=== PATIENT | female | born 1960 | race African-American/Black ===

== ENCOUNTER 2019-06-14 14:01 | Emergency (ER) | payer OTHER ==
[~2019-06-14] VITALS: Ht 154.9 cm; Wt 90.3 kg
[~2019-06-14 14:01] MED LIST: AMOXIL 875 MG875 M1 PO; CIPRO HC OTIC S10 ML OTIC; NOHOMEMEDICATIONS; NORCO 5-325 TA1 EACH PO
[2019-06-14 15:05] LABS: ABSOLUTE NEUTROPHILS 3.4 thou/uL (1.4-8.2); BASOPHILS 0.9 % (0.0-2.0); EOSINOPHILS 2.1 % (0.0-3.0); HEMOGLOBIN 13.1 gm/dL (12.0-15.0); LYMPHOCYTES 31.1 % (24.0-44.0); MCH 30.1 pg (26.0-34.0); MCHC 33.5 g/dL (28.0-37.0); MCV 89.8 fL (80.0-100.0); MONOCYTES 6.3 % (1.0-8.0); PLATELET COUNT 219 thou/uL (150-400); POLYS 59.6 % (36.0-66.0); RBC 4.34 mil/uL (4.20-5.00); RDW 13.8 % (10.5-14.5); WBC 5.7 thou/uL (4.0-11.0)
[2019-06-14 15:15] LABS: CALCIUM 9.3 mg/dL (8.5-10.1); CREATININE 0.8 mg/dL (0.6-1.0); POTASSIUM 3.3 mmol/L (3.5-5.1)
[2019-06-14 15:21] LABS: ALBUMIN 3.6 g/dL (3.4-5.0); TOTAL BILIRUBIN 0.5 mg/dL (<0.1-1.0); TOTAL PROTEIN 9.1 g/dL (6.4-8.2)
[2019-06-14] MEDS ORDERED: KEFLEX500 M1 PO (17:23)
[2019-06-14 17:35] VITALS: BP 148/83
== END 2019-06-14 18:08 | disposition home or self-care (01) ==
LOC: ER 14:01
PROVIDERS: Physician Assistant
DX: S91.302A Unspecified open wound, left foot, initial encounter (principal); L03.116 Cellulitis of left lower limb; I87.8 Other specified disorders of veins; E86.0 Dehydration; Z98.890 Other specified postprocedural states; X58.XXXA Exposure to other specified factors, initial encounter; Y92.89 Other specified places as the place of occurrence of the external cause; Y93.89 Activity, other specified; Y99.8 Other external cause status

== ENCOUNTER 2019-08-10 17:26 | Inpatient (IN) | payer OTHER ==
[~2019-08-10] VITALS: Ht 154.9 cm; Wt 86.2 kg
[~2019-08-10 17:26] MED LIST changes: +KEFLEX500 M1 PO
[2019-08-10 17:38] VITALS: BP 155/89
[2019-08-10 19:53] LABS: ABSOLUTE NEUTROPHILS 6.6 thou/uL (1.4-8.2); BASOPHILS 0.5 % (0.0-2.0); EOSINOPHILS 0.4 % (0.0-3.0); HEMATOCRIT 36.9 % (37.0-47.0); HEMOGLOBIN 12.4 gm/dL (12.0-15.0); LYMPHOCYTES 15.5 % (24.0-44.0); MCH 30.2 pg (26.0-34.0); MCHC 33.7 g/dL (28.0-37.0); MCV 89.6 fL (80.0-100.0); MONOCYTES 11.5 % (1.0-8.0); PLATELET COUNT 243 thou/uL (150-400); POLYS 72.1 % (36.0-66.0); RBC 4.12 mil/uL (4.20-5.00); RDW 14.3 % (10.5-14.5); WBC 9.1 thou/uL (4.0-11.0)
[2019-08-10 19:58] LABS: CALCIUM 9.2 mg/dL (8.5-10.1); CREATININE 0.8 mg/dL (0.6-1.0); POTASSIUM 3.2 mmol/L (3.5-5.1)
[2019-08-10 20:05] LABS: ALBUMIN 3.5 g/dL (3.4-5.0); TOTAL BILIRUBIN 1.6 mg/dL (<0.1-1.0); TOTAL PROTEIN 9.4 g/dL (6.4-8.2)
[2019-08-10 21:39] VITALS: BP 179/95
[2019-08-10 21:42] VITALS: BP 179/95
[2019-08-10 22:23] VITALS: BP 137/75
[2019-08-11 04:10] VITALS: BP 141/71
--- NOTE | 2019-08-11 06:18 | NUR ---
PT ALERT AND ORIENTED X4. PT REPORTS PAIN IN LOWER LEFT LEG 7/10 WITH MOVEMENT AND TACTILE STIMULATION. PAIN 1/10 AT REST WITHOUT MOVEMENT. FENTANYL PRN AND NORCO PRN EFFECTIVE PER PT REPORT. PT OBSERVED SLEEPING, ABLE TO AROUSE EASILY. PT REQUESTS DAUGHTER YUMIKO FONTAINE TO BE CONTACTED WITH CHANGES IN PLAN OF CARE. PT REFUSES TO HAVE HEELS OFF LOADED DUE TO PAIN IN BLE. PT CONTINUES ON VANCOMYCIN WITHOUT ADVERSE EFFECTS. PT ORIENTED TO UNIT, NO EXPRESSIONS OF CONCERN AT THIS TIME. PT HAS OPEN WOUND ON LEFT POSTERIOR LOWER CALF, MEASURING AT 4.0 X 0.1 X 0.0. DRAINAGE IS BLOODY. WOUND CLEANSED AND COVERED. WOUND CONSULT ORDERED. PT WITH MODERATE ASSIST WITH AMBULATION, TRANSFERRING. ENCOURAGED TO NOTIFY STAFF FOR ALL CONCERNS. BED IN LOWEST POSITION, BED ALARMS ON, CALL LIGHT WITHIN REACH. WILL CONTINUE TO MONITOR.
[2019-08-11 08:34] VITALS: BP 140/78
[2019-08-11 09:55] LABS: CALCIUM 8.8 mg/dL (8.5-10.1); CREATININE 0.6 mg/dL (0.6-1.0); MAGNESIUM 1.9 mg/dL (1.8-2.4); POTASSIUM 3.2 mmol/L (3.5-5.1)
--- NOTE | 2019-08-11 10:41 | NUR ---
ASSESSMENT-PT LIVES ALONE IN AN APT. SHE HAS 2 DTRS AND 8 GRANDDTRS IN THE AREA. PT USES CRUTCHES TO GET AROUND AND DOES HER OWN ADLS. PT HAS NOT HAD ANY HH SERVICES AND NOT BEEN TO ANY REHAB. PT HAS A SHOWER CHAIR AND GRAB BRS ALSO. 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 PT DOES NOT DRIVE. DTRS ASSIST WITH TRANSPORT. PT VOICES NO CONCERS RELATED TO DC. FOLLOWING TO ASSIST WITH DC PLANNING.
--- NOTE | 2019-08-11 11:37 | NUR ---
PT CARE ASSUMED 0700. A&Ox4. PT HAD MRI OF THE RIGHT FOOT AND CALF. ANAEROBIC AND AEROBIC CULTURE OBTAINED FROM THE RIGHT CALF. PT. IS A MODERTE ASSIST AND USES THE BEDSIDE COMMODE. BATH RECEIVED. DRESSING ON RIGHT HEAL PERFORMED. IV IN PLACE AND FLUSHING. FLUIDS RUNNNING. CALL LIGHT IN REACH. PT IS SLEEPING A LOT. CALM AND PLEASANT.
[2019-08-11 16:53] VITALS: BP 135/81
[2019-08-11 19:50] VITALS: BP 147/80
[2019-08-12 04:40] VITALS: BP 123/82
[2019-08-12 08:29] VITALS: BP 144/78
--- NOTE | 2019-08-12 10:34 | NUR ---
RD consult received for pt with unintentional wt loss. Pt states has lost about 10 lb over unspecified time frame. Not significant, BMI is 36. Admit with cellulitis, left lower calf wound, venous stasis disease. No osteo identified. Eating very well and c/o not receiving enough food at meals. Provided menu for pt to order. Low nutrition risk
--- NOTE | 2019-08-12 15:06 | NUR ---
ASSUMED CARE OF PATIENT AT 0715, PATIENT ALERT AND ORIENTED X 4. PATIENT UP WITH MOD. ASSIST X 1 WITH GAIT BELT AND WALKER. PATIENT C/O PAIN WITH LEFT LEG, HYDROCODONE 1 TABLET GIVEN, WITH GOOD RELIEF. PATIENT HAS LEFT AC IV IN PLACE WITH NS AT 80CC/HR, AND RECEIVED VANCO IV X 1 THIS SHIFT. WOUND CARE WILL BE DONE FOR LEFT LEG WITH NEW ORDERS THIS SHIFT. PATIENT WORKED WITH YUVAL/PT THIS AM. WILL CONTINUE TO MONITOR.
[2019-08-12 17:54] VITALS: BP 140/89
[2019-08-12 19:40] VITALS: BP 136/87
[2019-08-13 02:08] LABS: GLYCOHEMOGLOBIN (HGB A1C) 5.4 % (4.8-5.6)
[2019-08-13 02:56] VITALS: BP 135/89
--- NOTE | 2019-08-13 04:55 | NUR ---
Assumed pt care at 1900. A/OX4,VSS. Up with moderate assist RW/GB [place] [facility] C/o pain to left leg wound medicated with [place] with relief reported. Drsg to Left leg C/D/I. IV came off this morning, reinserted after threee attempts on left hand,IVF infusing. Fall precautions in place,calls approp.
[2019-08-13 08:15] VITALS: BP 141/90
--- NOTE | 2019-08-13 15:23 | NUR ---
[facility] CARRIES [employer] CR[employer]CHES AND HAVE THEM IN STOCK CURRENTLY. FAXED FACE SHEET, H&P, VIVIAN TX NOTES AND SCRIPT TO THEM. PT SAYS ONE OF HER DTR'S LIVE IN [place] AND SHE WOULD BE ABLE TO PICK THEM UP FROM [address] [facility], [place].
[2019-08-13 16:24] VITALS: BP 118/75
--- NOTE | 2019-08-13 17:10 | NUR ---
I have reviewed the documentation by ETHAN MEHTA from 08/13/19 to 08/13/19 and I concur with it. MEGAN BEVERLY
[2019-08-13 20:15] VITALS: BP 142/78
--- NOTE | 2019-08-14 04:53 | NUR ---
ASSUMED CARE OF PT @1900 PT ASSESSED AT START OF SHIFT A&OX4 DRESSING INTACT IN LEFT LEG. UP WITH ASSISTXT WITH GB AND W/K HAD FREQ URINATION AT THIS SHIFT. IV IN LFT HAND WENT BAD. NEW IV 22G INSERTED IN RT HAND AFTER X1 ATTEMPT. ABX AND FLUIDS INFUSING. FALL PREC IN PLACE AND CALL LIGHT WITHIN REACH WILL CONT WITH POC TILL EOS.
[2019-08-14 05:25] VITALS: BP 149/94
[2019-08-14 08:10] VITALS: BP 137/32
[2019-08-14] MEDS ORDERED: AUGMENTIN 875-1 EACH PO (09:40)
[2019-08-14] MEDS ORDERED: HYDROCODON-ACE1 EAC7 PO (09:42)
[2019-08-14] MEDS ORDERED: SSD CREAM 1% 5050 GM TOP (09:42)
--- NOTE | 2019-08-14 11:46 | NUR ---
FAXED REFERRAL TO [facility] SPOKE WITH HARRISON IN INTAKE SHE RECEIVED REFERRAL AND THE WILL REVIEW. DP TO FOLLOW.
[2019-08-14] MEDS ORDERED: CEFUROXIME500 MG PO (12:13)
[2019-08-14 14:12] VITALS: BP 137/32
[2019-08-14 14:31] VITALS: BP 137/32
--- NOTE | 2019-08-14 15:42 | NUR ---
ASSUMED CARE OF THE PT AT 0700. PT IS UP AD MARY TO BEDSIDE COMMODE. CHANGED DRESSING FOR WOUNDS ON THE L AND R LEGS AND APPLIED LOTIONS TO R LEG AND R FOOT. DISCONTINUED THE R HAND IV, NO REDNESS OR DRAINAGE. NO LATEX GLOVES OR MATERIALS USED TO TREAT PT. LUNGS ARE CLEAR. RADIAL PULSES ARE STRONG. PT WILL BE DISCHARGED TO HOME WITH HOME HEALTH CARE. CHAIR ALARM ON AND CALL LIGHT IS WITHIN REACH. WILL CONTINUE TO MONITOR THE PT UNTIL DISCHARGED.
[2019-08-14 15:58] VITALS: BP 137/32
--- NOTE | 2019-08-24 18:37 | HC ---
[facility] [place] [address] [place] [address] CONSULTATION Name: VALERIA FONTAINE Room #: 444-P [facility] IN M.R.#: [id number] Admission: 08/10/19 Attend Phys: Karena Peoples Discharge: 08/14/19 Date of : 60 Report #: [id number] THIS REPORT FOR: //name// CC: DAIANA physician/PCP Karena Peoples DATE OF SERVICE: 08/11/2019 HISTORY OF PRESENT ILLNESS: This is a 58-year-old female patient who was admitted to the hospital after presenting to the Emergency Department with complaints of pain, swelling, redness and drainage to her left ankle and leg. She was seen in the Emergency Department earlier in May and has had persistence of drainage since that time. She was treated with oral Keflex at that point in time due to concern for progressive infection. She is admitted for further evaluation and treatment. The patient states that she has significant pain, swelling and redness of the leg. PAST MEDICAL HISTORY: As per history. PAST SURGICAL HISTORY: Prior surgery of removing a portion of her kneecap, repairing her heels when she was an . She states that she had 20 surgeries during childhood on her legs. She has had previous . SOCIAL HISTORY: The patient admits to occasional alcohol consumption. Denies smoking. FAMILY HISTORY: Positive for heart disease in her mother, esophageal cancer in her father. MEDICATIONS: Include hydrocodone, Cipro, amoxicillin. ALLERGIES: LATEX. REVIEW OF SYSTEMS: CONSTITUTIONAL: The patient denies fever, chills or weight loss. NEUROLOGICAL: The patient denies focal weakness, numbness or tingling. EYES: The patient denies visual changes, redness, or drainage. ENT: The patient denies earache, nasal drainage or sore throat. CARDIOVASCULAR: The patient denies chest pain or palpitations or diaphoresis. PULMONARY: The patient denies cough or shortness of breath. GASTROINTESTINAL: The patient denies nausea, vomiting, diarrhea or abdominal pain. ORTHOPEDIC: The patient denies pain, swelling, redness. Drainage and ulceration of the left lower extremity, none on the right. Other systems in 14-point review of systems are negative. [facility] [address] [place] [address] CONSULTATION Name: VALERIA FONTAINE Room #: 444-P [facility] IN M.R.#: [id number] Admission: 08/10/19 Attend Phys: Karena Peoples Discharge: 08/14/19 Date of : 60 Report #: [id number] PHYSICAL EXAMINATION: VITAL SIGNS: At this time include temperature 36.9, pulse 100, respiratory rate 18, blood pressure 135/81. GENERAL: This is a well-developed, well-nourished female patient who appears to be in minimal distress. HEENT: Head normocephalic. Nose and throat are clear. NECK: Supple. LUNGS: Clear. ABDOMEN: Soft. Bowel sounds are present. EXTREMITIES: Lower extremity demonstrates palpable distal pulses. There is clearly changes of lymphedema to the left lower extremity with crusting and hyperkeratosis of the lower leg and dorsal foot. There is ulceration on the posterior portion of the left calf and Achilles region. There is significant cellulitis involving the pretibial region of the foot. CLINICAL IMPRESSION: 1. Cellulitis, left lower leg, has venous type ulceration in the left posterior lower leg. 2. Lymphedema of the left leg. RECOMMENDATIONS: Recommend aggressive IV antibiotics, pending culture and sensitivity. Elevation of the legs would be appropriate. We will use Silvadene, Xeroform, ABD and Kerlix. We will limit compression until we see improvement in the cellulitis and she will need more aggressive compression. Recommend AmLactin lotion to the lower legs and feet bilaterally. She will need ongoing nutritional support and continuation of current medications. I appreciate being asked to see her in consultation. <ELECTRONICALLY SIGNED> By: Deny Davila MD 08/24/19 [id number] Deny Davila MD /nt
== END 2019-08-14 16:01 | disposition home health service (06) | DRG 872 ==
LOC: ER 17:26 → 4S 20:38 → EROBS 20:38 → 4S 21:53 → ENTRNSPT 08-14 15:51 → EDTRNSPTSTS 08-14 15:53 → 4S 08-14 16:01
PROVIDERS: Nurse Practitioner Acute Care; Physician Assistant; ADMIT Hospitalist
DX: A41.9 Sepsis, unspecified organism (principal); L03.116 Cellulitis of left lower limb; L97.829 Non-pressure chronic ulcer of other part of left lower leg with unspecified severity; E87.6 Hypokalemia; M60.9 Myositis, unspecified; A41.89 Other specified sepsis; Z91.040 Latex allergy status; Z82.49 Family history of ischemic heart disease and other diseases of the circulatory system; Z80.0 Family history of malignant neoplasm of digestive organs; Z79.899 Other long term (current) drug therapy
CPT/HCPCS: 10195

== ENCOUNTER 2019-11-17 09:48 | Inpatient (IN) | payer OTHER ==
[~2019-11-17] VITALS: Ht 154.9 cm; Wt 81.6 kg
[~2019-11-17 09:48] MED LIST changes: +AUGMENTIN 875-1 EACH PO; +CEFUROXIME500 MG PO; +HYDROCODON-ACE1 EAC7 PO; +SSD CREAM 1% 5050 GM TOP
[2019-11-17 09:50] VITALS: BP 139/85
[2019-11-17 11:10] LABS: HEMATOCRIT 36.5 % (37.0-47.0); HEMOGLOBIN 12.1 gm/dL (12.0-15.0); MCH 29.9 pg (26.0-34.0); MCHC 33.2 g/dL (28.0-37.0); MCV 89.9 fL (80.0-100.0); PLATELET COUNT 159 thou/uL (150-400); RBC 4.06 mil/uL (4.20-5.00); RDW 14.3 % (10.5-14.5); WBC 4.7 thou/uL (4.0-11.0)
[2019-11-17 11:16] LABS: CALCIUM 8.9 mg/dL (8.5-10.1); CREATININE 0.9 mg/dL (0.6-1.0); POTASSIUM 3.4 mmol/L (3.5-5.1)
[2019-11-17 11:22] LABS: ALBUMIN 3.2 g/dL (3.4-5.0); TOTAL BILIRUBIN 0.7 mg/dL (<0.1-1.0)
[2019-11-17 11:37] LABS: ABSOLUTE NEUTROPHILS 3.5 thou/uL (1.4-8.2); PLATELET ESTIMATE NORMAL
--- NOTE | 2019-11-17 13:39 | NUR ---
ATTEMPTED TO CALL REPORT. RECEIVING RN WILL CALL BACK
[2019-11-17 13:58] VITALS: BP 122/73
[2019-11-17 14:05] VITALS: BP 124/75
[2019-11-17 14:47] VITALS: BP 127/77
[2019-11-17 16:21] VITALS: BP 135/83
[2019-11-17 18:58] VITALS: BP 146/92
--- NOTE | 2019-11-17 21:21 | NUR ---
PATIENT ARRIVED FROM THE ED VIA BED THIS AFTERNOON IN STABLE CONDITION. ADMISSION ASSESSMENT COMPLETED AND WOUND DOCUMENTATION COMPLETED INCLUDING PICTURES. PATIENT ON FLU PRECAUTIONS AND IN ISOLATION WITH DOOR CLOSED.
--- NOTE | 2019-11-18 01:39 | NUR ---
PT CARE ASSUMED WITH PT IN BED WATCHING TV.PT IS A/O X4.PT IS UP WITH CRUTCHES OR WALKER AND SOMEBODY ASSIST.IV ACCESS ON RAC /SL AND ON VANCOMYCIN.PT HAS BLE WITH LEFT LE SWOLLEN .PT IS ON DROPLET PRECAUTION FOR INFLUENZA A.PT HAD DIARRHEA YESTERDAY AND HAD A LARGE LOOSE STOOL .PT IS ON 2L OF O2 NASAL CANULA.WILL CONTINUE TO MONITOR PER POC
[2019-11-18 07:39] VITALS: BP 142/81
--- NOTE | 2019-11-18 14:02 | NUR ---
PT ADMITTED RELATED TO INFLUENZA A, LEFT LOWER LEG WOUND. CM REVIEWED CHART AND SPOKE WITH CARE TEAM. CM MET WITH PT AT BEDSIDE THIS DAY. PT IS A&O X4. CM ROLE INTRODCUED. PT INDICATED SHE LIVES ALONE IN AN APARTMENT WITH 1 STEP TO ENTER AND 1 STEP INSIDE. 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 PT INDICATED SHE DOESN'T HAVE A PCP AT THIS TIME. PT INDICATED SHE PLANS TO RETURN HOME ONCE MEDICALLY STABLE. CM TO FOLLOW INDICATED WITH DC PLANNING.
[2019-11-18 15:24] VITALS: BP 146/88
--- NOTE | 2019-11-18 16:04 | NUR ---
Assumed patient care at 0715. Vital signs have been stable. Patient continues on Isolation (Droplet Precautions for Influenza). Patient was on Oxygen per nasal cannula at 2 Liters; this was discontinued today per Respiratory Therapy. She was using crutches to ambulate prior to admission. She is unable to ambulate at this time due to Cellulitis in Left Lower Extremity. No open areas noted. Using Silver Sulfadiazine 50 Gram as ordered. Patient is on scheduled Tylenol 350mg po; this has been helpful in reducing her pain. She has been getting IV Antibiotics; has had no adverse reactions to this treatment. Will continue to monitor.
[2019-11-18 19:08] VITALS: BP 136/85
--- NOTE | 2019-11-19 02:04 | NUR ---
ASSUMED CARE OF PT AT 1900HRS. PT IS AOX4 AND LETS NEEDS BE KNOWN. FALL PRECAUTION IN PLACE. ABX TREATMENT CONTINUED. PT REPORTED SOME PAIN AND AND WAS TREATED. WOUND DRESSING CHANGED DIRECTED. PT HAD A LOW GRADE FEVER THIS SHIFT. PT WAS ABLE TO GET COMFORTABLE AND SLEEP PART OF THE SHIFT. SO S/S OF ACUTE DISTRESS. WILL CONTINUE TO MONITOR.
[2019-11-19 05:39] VITALS: BP 156/95
--- NOTE | 2019-11-19 11:55 | NUR ---
Nutrition: Pt assessed due to presence of wound. Admit: +Influenza A, L lower leg wound. Hx: LE lymphedema, cellulitis. In addition to L leg cellulitis w/ wound, provider notes also indicate open heel wound. Per EMR plan to discharge home in the a.m. w/ home health. Pt on a regular diet, ate 75% of 2 meals yesterday. Recent BM 11/18. Visited pt prior to lunch. Pt sleepy. Reports low appetite, which is to be expected, but ate decently per 11/18 records. Focused on nutrition education as one small part to support wound healing. Encouraged high protein, rich vitamin C and zinc foods; providing food examples of each. Encouraged 1-2 sources per meal upon appetite improvement as flu symptoms subside. Pt is down another 10# in 3 mo from 190# per Jul 2019 admit, to 180# per reported wt this admit. BMI 34 kg/m2; fall into obese class II category. Pt denies any questions/concerns. Low nutrition risk w/ education complete.
--- NOTE | 2019-11-19 19:50 | NUR ---
Assumed patient care at 0715. All vital signs have been stable except that she has been running an oral temp of 99-101. She is on scheduled Tylenol 325mg po and has not complained of pain. Patient continues on Room Air and IV Antibiotics without adverse reactions. Patient has been noted to have clear drainage from her nose with a congested cough. Dressings to lower extremities are clean, dry and intact. POC followed. Report given to on-coming RN.
[2019-11-19 20:45] VITALS: BP 137/92
[2019-11-20] VITALS (7 sets, daily range): BP systolic 119–138; BP diastolic 73–91
--- NOTE | 2019-11-20 01:57 | NUR ---
ASSUMED CARE OF PT AT 1900HRS. PT IS AOX4 AND LETS NEEDS BE KNOWN. FALL PRECAUTION IN PLACE. ABX TREATMENT CONTINUED. DRESSING CHANGE COMPLETED DIRECTED. PT REPORTED SOME PAIN AND COUGHING. PRN MEDS GIVEN. PT HAD AN ELEVATED TEMP. PT WAS ABLE TO GET COMFORTABLE AND SLEEP PART OF THE SHIFT. NO S/S OF ACUTE DISTRESS WILL CONTINUE TO MONITOR.
--- NOTE | 2019-11-20 07:50 | HC ---
[facility] [place] [address] CONSULTATION Name: VALERIA FONTAINE Room #: [facility]- ADM IN M.R.#: [id number] Admission: 11/17/19 Attend Phys: Karena Peoples Discharge: Date of : 60 Report #: [id number] THIS REPORT FOR: cc: NO FAMILY PHYSICIAN or PCP FAM - No family physician/PCP Deny Davila MD ~ CC: DAIANA physician/PCP Karena MELARA PCP DATE OF SERVICE: 11/18/2019 CHIEF COMPLAINT: Ulcerations of the left lower extremity with lymphedema. HISTORY: This is a 58-year-old female patient with a history of lower extremity lymphedema who had presented to the Emergency Department with fever, cough and headache. She is noted to have some swelling and redness and drainage from her left leg. I have been asked to see with regard to wound care. PAST MEDICAL HISTORY: Positive for a history of cerebral palsy. She has had previous . She had multiple surgeries on her lower extremities during childhood. FAMILY HISTORY: Positive for heart disease in her mother. Her father of esophageal cancer. SOCIAL HISTORY: She admits to occasional alcohol use. Negative for tobacco or recreational drug use. CURRENT MEDICATIONS: Include hydrocodone, Silvadene cream and cefuroxime. ALLERGIES: LATEX. REVIEW OF SYSTEMS: CONSTITUTIONAL: The patient denies fever, chills or weight loss. NEUROLOGICAL: The patient denies focal weakness, numbness or tingling. EYES: The patient denies visual changes, redness, or drainage. ENT: The patient denies earache, nasal drainage, sore throat. CARDIOVASCULAR: The patient denies chest pain, palpitations or diaphoresis. PULMONARY: The patient denies cough or shortness of breath. GASTROINTESTINAL: The patient denies nausea, vomiting, diarrhea or abdominal pain. ORTHOPEDIC: The patient does complain of some swelling and pain in lower extremities, left greater than the right. Other systems in a 14-point review of systems are negative. [address] [address] CONSULTATION Name: VALERIA FONTAINE Room #: [facility] IN M.R.#: [id number] Admission: 11/17/19 Attend Phys: Karena Peoples Discharge: Date of : 60 Report #: [id number] PHYSICAL EXAMINATION: VITAL SIGNS: At this time include temperature 100.9, pulse 97, respiratory rate 17, blood pressure 142/81. GENERAL: This is a somewhat chronically ill-appearing female patient who appears to be in minimal distress. HEENT: Head normocephalic. Nose and throat clear. NECK: Supple. LUNGS: Clear. ABDOMEN: Soft. EXTREMITIES: Lower extremities demonstrate what appeared to be changes consistent with lymphedema much more so on the left than on the right. There are what appears to be ulcerations on the medial and posterior portions of the left ankle. There is some crusted material present as well as some hyperkeratosis present. The area is mildly tender, distal pulses are easily palpable. NEUROLOGIC: The patient is alert and oriented x 3. She does move her upper and lower extremities symmetrically. LABORATORY DATA: Includes white blood cell count 4.7, hemoglobin 12.1, hematocrit 36.5. Sodium 139, potassium 3.4, chloride 104, CO2 of 22, BUN 16, creatinine 0.9 and glucose 96. Total protein 8.0, albumin is 3.2. CLINICAL IMPRESSION: 1. Cellulitis, bilateral lower extremities, left greater than right. 2. Lymphedema to the lower extremities, left greater than right. 3. Influenza A. 4. History of cerebral palsy. RECOMMENDATIONS: At this point in time, we will recommend AmLactin cream to the dry skin of the lower extremities. We will recommend Xeroform gauze to the crusted and ulcerated areas, we will use Kerlix and Brayan wraps from toes to knees for gentle compression to be changed Saturday, Saturday and Saturday. We will reassess again in 48 hours. The patient is agreeable to this current plan of care and I appreciate being asked to see her in consultation. <ELECTRONICALLY SIGNED> By: Deny Davila MD 11/20/19 0750 [id number] Deny Davila MD /nt
--- NOTE | 2019-11-20 10:32 | NUR ---
Received awake on bed. Due medications given as prescribed, able to swallow meds w/o difficulty. On room air. Vital signs stable. A+Ox4. On regular diet- tolerating well; no nausea, no vomiting and no abdominal pain noted; encouraged to eat and drink. Assisted in ADLs. With L AC- SL- intact. With bilateral lower extremity dressing in place- C/D/I. On latex allergy- protocol observed. Able to use bedside commode with AO1, gait belt and crutches. Maintained on isolation due to Influenza A. Falls bundle in place. For possible discharge today, a/w physician's rounds and orders to be placed- CM informed as well.
[2019-11-20] MEDS ORDERED: AMMONIUM LACTA226 GM TOP (11:32)
[2019-11-20] MEDS ORDERED: CEFUROXIME500 MG PO (11:33)
--- NOTE | 2019-11-20 15:59 | NUR ---
CARE TEAM INDICATED THAT PT IS MEDICALLY STABLE TO DC HOME WITH HOME HEALTH SERVICES THIS DAY. REFERRAL INITIALLY SENT TO [facility] BUT THEY ARE OUT OF NTWORK WITH PT'S INSURANCE. REFERRAL SENT TO [facility] AND THEY CAN ACCEPT PT AND WILL DO A SOC SAT OR SUN. PT HAS ALL RECOMMENDED DME. NO OTHER CM INTERVENTION INDICATED. CASE CLOSED.
--- NOTE | 2019-11-20 16:38 | NUR ---
DISCHARE PLANNING. DISCHARGE TO HOME WITH HOME HEALTH SERVICES RECOMMENDED. PAT[facility]. CALL RECEIVED FROM [facility]. PER BOBBY PATIENT IS OUT OF NETWORK WITH PTS PROVIDER. PATIENT REFERRAL FAXED TO [facility]. CALL RECEIVED FROM December, INTAKE. PER ANDREA[facility] IS OUT OF NETWORK WITH PATIENTS PROVIDER. UNIT SW NOTIFIED. UNIT SW TO CONTINUE WITH REFERRAL PROCESS AT THIS TIME.
--- NOTE | 2019-11-23 10:04 | NUR ---
[facility] Call placed to [facility] this am. Spoke with Lashawn, intake for [facility]. Per Lashawn, patients provider is out of network with [facility]. Patient referral faxed to [facility] per request. Unit SW aware. Awaiting response from [facility].
== END 2019-11-20 21:43 | disposition home health service (06) | DRG 872 ==
LOC: ER 09:48 → EROBS 13:36 → 4W 13:36
PROVIDERS: Nurse Practitioner Family; ADMIT Hospitalist
DX: A41.9 Sepsis, unspecified organism (principal); L03.116 Cellulitis of left lower limb; L03.115 Cellulitis of right lower limb; J10.1 Influenza due to other identified influenza virus with other respiratory manifestations; L98.499 Non-pressure chronic ulcer of skin of other sites with unspecified severity; I89.0 Lymphedema, not elsewhere classified; I87.2 Venous insufficiency (chronic) (peripheral); Z79.899 Other long term (current) drug therapy; Z91.040 Latex allergy status; Z82.49 Family history of ischemic heart disease and other diseases of the circulatory system; Z80.0 Family history of malignant neoplasm of digestive organs
CPT/HCPCS: 10040

== ENCOUNTER 2020-03-14 14:27 | Inpatient (IN) | payer OTHER ==
[~2020-03-14] VITALS: Ht 154.9 cm; Wt 87.0 kg
[~2020-03-14 14:27] MED LIST changes: +AMMONIUM LACTA226 GM TOP
[2020-03-14 14:28] VITALS: BP 144/73
[2020-03-14 17:17] VITALS: BP 144/73
[2020-03-14 17:28] VITALS: BP 148/86
[2020-03-14 18:31] VITALS: BP 133/77
[2020-03-14 19:47] VITALS: BP 139/87
--- NOTE | 2020-03-15 01:07 | NUR ---
PT TO UNIT AROUND 1800. THIS RN TOOK OVER CARE AT 1900. CHIKIS, ADMINISTRATIVE SERVICES ASSISTANT, COMPLETED THE ADMISSION EDUCATION, HX AND ASSESSMENT. PT IS A&OX4. 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 PT USES SPECIAL CRUTCHES AT HOME, SHE IS NOT COMFORTABLE GETTING UP WITHOUT THEM. USES BEDPAN FOR TOILETING, IS ABLE TO ASSIST IN TURNING. REPORTS MINIMAL PAIN, TYLENOL GIVEN. PLAN FOR MRI IN AM. ORTHO SURGERY CONSULTED. PT IS CURRENTLY RESTING IN BED WITH NO COMPLAINTS AT THIS TIME.
[2020-03-15 05:25] VITALS: BP 115/73
[2020-03-15 08:22] VITALS: BP 118/73
--- NOTE | 2020-03-15 13:59 | NUR ---
PT ADMITTED RELATED TO RIGHT ROTATOR CUFF INJURY. CM REVIEWED CHART AND SPOKE WITH CARE TEAM. CM CALLED AND SPOKE WITH PT AT BEDSIDE THIS DAY. PT APPEARED TO BE A&O X4. CM ROLE INTRODUCED. PT REMEMBERED CM FROM PREVIOUS ADMISSION. PT INDICATED SHE RESIDES IN AN APARTMENT ALONE WITH 1 STEPS TO ENTER. PT INDICATED SHE HAS CRUTCHES AND A WHEELCHAIR TO ASSIST WITH MOBILITY AT HOME. PT INDICATED SHE DOESN'T HAVE HER CRUTCHES HERE WITH HER EMS DIDN'T BRING THEM. PT INDICATED SHE HAD BEEN ON SERVICE WITH [facility] AND THAT SHE WOULD LIKE TO RESUME SERVICES WITH THEM IF APPROPRIATE UPON DC. CM SPOKE WITH PT ABOUT POSSIBLE NEED FOR POST ACUTE CARE STAY UPON DC AND SHE INDICATED SHE WOULD BE INTERESTED IN BEING ASSESSED FOR 5[facility] IF POSSIBLE. ORTHO CONSULTED. CM FOLLOWING REGARDING DC PLANNING.
[2020-03-15 17:21] VITALS: BP 129/76
--- NOTE | 2020-03-15 19:59 | NUR ---
Assumed care of pt at 0700. Pt a&ox4. MRI of the shoulder completed. Provider aware of results. Crutches brought in by phisycal therapy. Pt c/o right shoulder pain. Provider aware. New orders noted. Fall precautions in place. Report given to lolita [place].
[2020-03-15 20:50] VITALS: BP 120/90
--- NOTE | 2020-03-16 02:08 | NUR ---
ASSUMED PT CARE AT 1900.PT WAS OBSERVED SITTING UP IN THE RECLINER IN HER ROOM.PT COMPLAINED THAT THE CRUTCHES IN HER ROOM IS SLIPPERY,SHE REQUESTED TO USE A WALKER FOR MOBILITY.PT WITH BLE LYMPHEDEMA,DARK DISCOLORATION NOTED ON THE LLE.PT DENIED PAIN.PT APPEARS TO BE INDEPENDENT BUT WAS ENCOURAGED TO CALL FOR ASSISTNACE FOR TRANSFERS.FALL PRECAUTIONS IN PACE,CALL LIGHT WITHIN REACH.
[2020-03-16 04:00] VITALS: BP 126/65
[2020-03-16 08:52] VITALS: BP 129/72
--- NOTE | 2020-03-16 14:42 | NUR ---
[facility] ASSESSED AND INDICATED THAT THEY FELT PT WOULD BE A GOOD CANDIDATE FOR [facility] ACUTE INPATATIENT REHAB. [facility] INDICATED THAT THEY WOULD REQUEST INSURANCE AUTH THIS AFTERNOON. CM NOTIFIED PT SHE IS EXCITED. CM TO FOLLOW INDICATED WITH DC PLANNING.
--- NOTE | 2020-03-16 17:58 | NUR ---
PATIENT SEEN BY DR. JAMES FOR REHAB CONSULT. PATIENT IS A CANDIDATE FOR ACUTE REHAB STAY. AUTHORIZATION REQUEST INITIATED WITH PATIENT'S INSURANCE COMPANY. THANK YOU FOR THIS REFERRAL.
[2020-03-16 18:07] VITALS: BP 137/79
[2020-03-16 20:20] VITALS: BP 135/78
--- NOTE | 2020-03-16 20:32 | NUR ---
PATIENT STATED THAT SHE HAS GIVEN FAMILY REPORT ON HER TREATMENT AND THAT THIS NURSE DID NOT NEED TOO.
--- NOTE | 2020-03-16 22:52 | NUR ---
Care of patient sandra at 191. Patient is sitting in recliner in her room. Pleasant and cooperative with assessment. States she has a tear in her right rotator cuff, but was told surgery is not indicated at this time. Affect bright. Patient is talkative. Standby assist for transfer to commode as patient stated that PT instructed her to do as much independently as possible. Patient did well with transfer, then used walker to tranfer from commode to bed. Did require assistance with getting her legs in bed. Called for help to the commode again at 2244 and did well to transfer with minimal assist.
[2020-03-17 04:40] VITALS: BP 123/77
[2020-03-17 07:50] VITALS: BP 151/87
--- NOTE | 2020-03-17 10:06 | NUR ---
CALL RECEIVED FROM PATIENT'S INSURANCE. PATIENT HAS A NARROW NETWORK PLAN. THE ONLY REHAB AVAILABLE TO PATIENT IS [facility]. ALMOND HULLER INFORMED THAT [facility] NOT AN OPTION FOR PATIENT. THANK YOU FOR THIS REFERRAL.
--- NOTE | 2020-03-17 10:18 | NUR ---
Assumed care of pt at 0700. Rt shoulder pain controlled with prn pain meds. A&ox4. Possible [facility] admission today. Pt calls appropriatelly. Fall precautions in place. Will continue to monitor.
--- NOTE | 2020-03-17 15:12 | NUR ---
FAXED REFERRAL TO [facility] SPOKE WITH ROYER IN ADM SHE RECEIVED AND WILL HAVE TO DENY REFERRAL THE REHAB PHYSICIAN FEELS PT NEEDS SKILLED INSTEAD OF ACUTE REHAB, DP TO FOLLOW.
--- NOTE | 2020-03-17 16:20 | NUR ---
Cooper RM OF NETWORK WITH PT'S INSURANCE. REFERRAL SENT TO [facility]. [facility] DECLINED ADMISSION. CM MET WITH PT AND INFORMED HER. CM PROVIDED [facility] LIST FOR PT TO REVIEW FOR SKILLED REHAB OPTIONS. CM TO FOLLOW UP AND SEND REFERRALS REQUESTED.
[2020-03-17 16:34] VITALS: BP 122/64
[2020-03-17 20:25] VITALS: BP 133/84
--- NOTE | 2020-03-17 22:21 | NUR ---
Care of patient assumed at 1915. Pt is sitting in recliner in her room. Dneies current pain, stating her shoulder feels fine as long as she doesn't use that arm. Reports she is disappointed that the transfer to [facility] isn't possible. Per CM note, admission to a SNF will be pursued. Pt up to commode with standby assist, resulting in large BM. Up again to commode 1 hr later with moderate void. Compliant with HS meds.
[2020-03-18 04:10] VITALS: BP 137/86
--- NOTE | 2020-03-18 10:46 | NUR ---
PATIENT UP IN BEDSIDE CHAIR PT HAS OT THERASPY. PT GIVEN PRN PAIN MED. PT STATES IS TALKING TO FAMILY GIVING UP DATES AND THAT THIS NURSE DOES NOT NEED TO CALL FAMILY. PT IS PLEASANT AND COOPERATIVE WITH CARE.
--- NOTE | 2020-03-18 12:27 | NUR ---
CM FOLLOWED UP WITH PT THIS AM AND SHE ASKED THAT REFERRALS BE SENT TO [facility], [facility], AND [facility] FOR REVIEW FOR POSSIBLE ADMISSION. REFERRALS SENT. PT IS MEDICALLY STABLE BUT WE WILL NEED INSURNACE AUTH. CM TO FOLLOW INDICATED WITH DC PLANNING.
[2020-03-18 12:28] VITALS: BP 134/85
--- NOTE | 2020-03-18 16:13 | NUR ---
FAXED REFERRAL TO [facility] RECEIVED CONFIRMATION AND LEFT MSG WITH ADM. FAXED REFERRAL TO [facility] SPOKE WITH RAYMOND IN ADM HE RECEIVED REFERRAL AND IS AT [facility]. [facility]ED REFERRAL TO [facility] RECEIVED CONFIRMATION AND LEFT MSG WITH AIRAM IN ADM. DP TO FOLLOW.
--- NOTE | 2020-03-18 17:36 | NUR ---
PT UP IN BEDSIDE CHAIR. WATCHING TV WAS GIVEN PRN PAIN MED. HER FAMILY HAS BEEN UPDATED ON HER CONDITION SHE INFORMED THEM AND STATED THIS NURSE DID NOT NEED TOO.
[2020-03-18 17:38] VITALS: BP 119/70
[2020-03-18 20:53] VITALS: BP 120/76
--- NOTE | 2020-03-18 23:23 | NUR ---
ASSUMED PT CARE AT AROUND 2200 HRS. HS MEDS GIVEN DENIES ANY PAIN. PATIENT SITTING IN THE CHAIR. APPEARS TO BE IN NO DISTRESS. SLING/IMMOBILIZER TO R SHOULDER.CALL LIGHT WITHIN REACH. REPORT GIVEN TO ANGELINA DE LA ROSA AT [facility] 2300HRS.
[2020-03-19 04:45] VITALS: BP 131/86
[2020-03-19 08:36] VITALS: BP 147/80
--- NOTE | 2020-03-19 14:07 | NUR ---
PT UP IN BEDSIDE CHAIR WATCHING TV. GIVEN PRN PAIN MED. PT ALERT XS 4. PT CONT OF B&B. USES BSC. APPETITE GOOD.
[2020-03-19 17:26] VITALS: BP 125/73
[2020-03-19 19:45] VITALS: BP 135/73
[2020-03-19 20:20] VITALS: BP 135/73
--- NOTE | 2020-03-19 22:59 | NUR ---
LATE ENTRY NOTE FROM NIGHT OF 03/18/20. ACQUIRED PATIENT AT APPROXIMATELY 2300. PATIENT IN CHAIR THROUGHOUT THE NIGHT. ALERT AND ORIENTED X4. EDEMA 3-4+ TO BILATERAL LOWER LEGS. PATIENT UP TO BSC WITH MODERATE AMOUNT OF ASSIST AND VERY SLOW DUE TO CP. DENIES PAIN. COOPERATIVE WITH CARE.
--- NOTE | 2020-03-20 03:41 | NUR ---
ASSESSED AT START OF SHIFT. PT A&OX4. RESTING IN CHAIR WITH BLE ELEVATED. NO SIGNS OF DISTRESS. UP WITH SPECIAL CRUTCHES TO THE BSC REQUIRES EXTRA TIME. EVENING MED GIVEN. FALL PREC IN PLACE AND CALL LIGHT IN REACH WILL CONT WITH POC TILL EOS.
[2020-03-20 05:10] VITALS: BP 140/73
[2020-03-20 05:58] LABS: ABSOLUTE NEUTROPHILS 4.3 thou/uL (1.4-8.2); BASOPHILS 0.7 % (0.0-2.0); EOSINOPHILS 1.3 % (0.0-3.0); HEMATOCRIT 37.5 % (37.0-47.0); HEMOGLOBIN 12.7 gm/dL (12.0-15.0); LYMPHOCYTES 34.6 % (24.0-44.0); MCH 31.8 pg (26.0-34.0); MCHC 33.9 g/dL (28.0-37.0); MONOCYTES 8.4 % (1.0-8.0); PLATELET COUNT 219 thou/uL (150-400); RBC 3.99 mil/uL (4.20-5.00); RDW 14.1 % (10.5-14.5); WBC 7.8 thou/uL (4.0-11.0)
[2020-03-20 06:45] LABS: ANION GAP 11 mmol/L (7-16); BUN 25 mg/dL (7-18); CALCIUM 8.4 mg/dL (8.5-10.1); CHLORIDE 106 mmol/L (98-107); CO2 23 mmol/L (21-32); CREATININE 0.6 mg/dL (0.6-1.0); GLUCOSE 103 mg/dL (74-106); POTASSIUM 4.3 mmol/L (3.5-5.1); SODIUM 140 mmol/L (136-145)
[2020-03-20 08:35] VITALS: BP 137/85
[2020-03-20 18:27] VITALS: BP 119/70
[2020-03-20 20:15] VITALS: BP 131/72
--- NOTE | 2020-03-20 23:21 | NUR ---
ASSESSMENT COMPLETED. PT IS SITTING IN THE CHAIR.PT GOT UP TO BSC, VOIDING OKAY, HAD A BM EARLIER IN THE SHIFT. SHE GETS UP SLOWLY-REQUIRES TIME. VSS. APPETITE OKAY.PT IS LOOKING FORWARD TO GOING HOME TOMORROW.
[2020-03-21 05:10] VITALS: BP 115/74
[2020-03-21] MEDS ORDERED: MIRALAX17 GM PO (11:50)
[2020-03-21] MEDS ORDERED: COLACE 100 MG100 MG PO (11:50)
[2020-03-21] MEDS ORDERED: LIDOPATCH1 EACH TRANSDERM (11:50)
[2020-03-21 12:58] VITALS: BP 115/74
[2020-03-21 13:57] VITALS: BP 115/74
--- NOTE | 2020-03-21 13:59 | NUR ---
CARE TEAM INDICATED THAT PT WAS DOING BETTER WITH PAIN MANAGEMENT AND MOBILITY AND EXPRESSED DESIRE TO DC HOME WITH INCREASSED HH SERVICES. CM SPOKE WITH PT AND SHE INDICATED THIS WAS IN FACT THE CASE. PT INDICATED SHE WANTED TO USE [facility] AGAIN. CM CALLED [facility] AND SPOKE WITH SOMEONE IN INTAKE. THEY HAD RECIEVED CLINICAL UPDATE AND RECOMMENDATION FOR PT AND OT 3X'S PER WEEK AND NURSING VISITS 2X'S PER WEEK. SHE INDICATED THAT FREQUENCY OF VISITS IS DICTATED BY INSURANCE PROVIDER. CM NOTIFIED PHYSICIAN AND PT OF THIS. PT AND PHYSICIAN STILL COMFORTABLE WITH PT DISCHARGING HOME THIS DAY. ORDERS FAXED TO [facility]. PT INDICATED SHE DIDN'T HAVE TRANSPORT HOME THAT HER NEPHEW HAS HER KEYS BUT THAT HER LANDLADY WILL LET HER IN IF HOME BY 5:30. CM ARRANGED [employer] [facility] TO [phone]. PT AND UNIT ARE AWARE. NO OTHER ITNERVENTION INDICATED. CASE CLOSED.
[2020-03-21 14:01] VITALS: BP 115/74
--- NOTE | 2020-03-21 15:07 | NUR ---
Assumed care of the patient at 0700 AM. Pt. demonstrates pain is under control and rates it a 3 out of 10. She is limited assist and is able to get to the bedside commode with supervision. She is inquiring about discharge and is ready to go home. Home health pt/ot set up by case management. Transport scheduled between [id number]. Fall percautions in place.
--- NOTE | 2020-03-25 11:38 | HC ---
[facility] [place] [address] [place] [address] CONSULTATION Name: VALERIA FONTAINE Room #: 448-[facility] IN M.R.#: [id number] Admission: 03/14/20 Attend Phys: Gordo Ball MD Discharge: 03/21/20 Date of : 60 Report #: [id number] THIS REPORT FOR: cc: DAIANA - [facility] family physician/PCP DAIANA - [facility] family physician/PCP Steve Escalera MD ~ CC: [facility] physician/PCP Gordo Ball DATE OF SERVICE: 03/16/2020 HISTORY OF PRESENT ILLNESS: The patient is a 59-year-old -[place]wegian female with a prior history of cerebral palsy with spastic diplegia, bilateral lower extremity paresis, was reaching for a sock and putting on her socks and shoes with her right upper extremity and felt a tearing of her right shoulder. She was admitted to [facility] and diagnosed with a right rotator cuff tear. She also has significant arthritic changes of the right shoulder. Orthopedics has seen her with consideration for possible total shoulder versus rotator cuff repair to be done as an outpatient. We are seeing her in rehabilitation medicine consultation. She has significant functional decline from her premorbid status. PAST MEDICAL HISTORY: Prior medical history includes the cerebral palsy. This is essentially spastic diplegia with lower extremity paresis. She notes she has had 20 surgeries on both lower extremities in her childhood and has had bilateral patella removed. She also has chronic bilateral lower extremity lymphedema. ALLERGIES: LATEX. MEDICATIONS: Please see the full medication listing. HABITS: No history of tobacco or alcohol abuse. SOCIAL HISTORY: She lives in an apartment alone, one step in. Would utilize lofstrand crutches for short distances and utilize a wheelchair for longer distances. Family does shopping. REVIEW OF SYSTEMS: No current complaints of chest pain, shortness of breath or abdominal discomfort. PHYSICAL EXAMINATION: GENERAL: A 59-year-old overweight, pleasant, short statured -[place]wegian female in no obvious distress. VITAL SIGNS: Last recorded temperature 98.2, pulse 60, respirations 17, blood pressure is 129/72. She is alert, pleasant, oriented, good historian. [facility] [address] [place] [address] CONSULTATION Name: VALERIA FONTAINE Room #: 448-[facility] IN M.R.#: [id number] Admission: 03/14/20 Attend Phys: Gordo Ball MD Discharge: 03/21/20 Date of : 60 Report #: [id number] HEENT: Facies appeared symmetric. EXTREMITIES: Functional range of motion of the left upper extremity without focal weakness. Right upper extremity, she does have discomfort with attempted movement. I did not range that right shoulder. She does have functional range of motion of the elbow, wrist and hand; however, appears to have reasonable strength of the right hand. In her lower extremities, she has considerable weakness of both lower extremities. She was unable to lift via hip flexion either lower extremities, abduction was probably a 4- to 3+, adduction was 3+. Appears to have some dorsiflexion of both lower extremities at the ankle, probably at least to grade 4- to 3+. I had difficulty actually bending her knees passively. She was lying in a recliner. No focal sensory decrease. She does have some chronic bilateral lower extremity lymphedema, which complicates things. Functionally, she was mod assist sit to stand. Gait was 4 steps mod assist. Appears to have some increased tone. ASSESSMENT: A 59-year-old -[place]wegian female with the following problem list: 1. Cerebral palsy with spastic diplegia. 2. New acute right rotator cuff tear, which has significantly decreased her functional abilities. Orthopedics is recommending Surgery as an outpatient. 3. Chronic bilateral lower extremity lymphedema. 4. Multiple prior lower extremity surgeries in her childhood. 5. Forearm crutches versus wheelchair mobility usage premorbidly. PLAN: We would like to see how she does in physical therapy today as she is allowed to try to get up with crutches and/or walker. She is very motivated to try to return back to the home setting, does have some family support that could assist her, as she further improves with her functional independence. We will see how she does in therapies and then proceed from there as far as checking with insurance regarding rehab therapy options. Thank you for asking us to assist in this patient's care. <ELECTRONICALLY SIGNED> By: Steve Escalera MD 03/25/20 1138 [id number] Steve Escalera MD /nt
== END 2020-03-21 16:15 | disposition home health service (06) | DRG 558 ==
LOC: ER 14:27 → EROBS 16:31 → 4S 16:31
PROVIDERS: Internal Medicine; ADMIT Internal Medicine; ATTEND Internal Medicine
DX: M75.101 Unspecified rotator cuff tear or rupture of right shoulder, not specified as traumatic (principal); G83.0 Diplegia of upper limbs; G80.1 Spastic diplegic cerebral palsy; M12.811 Other specific arthropathies, not elsewhere classified, right shoulder; I89.0 Lymphedema, not elsewhere classified; E87.6 Hypokalemia; G83.9 Paralytic syndrome, unspecified; Z79.899 Other long term (current) drug therapy; Z91.040 Latex allergy status; Z87.01 Personal history of pneumonia (recurrent)
CPT/HCPCS: 10195

== ENCOUNTER 2020-05-12 22:33 | Emergency (ER) | payer OTHER ==
[~2020-05-12] VITALS: Ht 154.9 cm; Wt 81.7 kg
[~2020-05-12 22:33] MED LIST changes: +COLACE 100 MG100 MG PO; +LIDOPATCH1 EACH TRANSDERM; +MIRALAX17 GM PO
[2020-05-13 00:37] LABS: ABSOLUTE NEUTROPHILS 3.4 thou/uL (1.4-8.2); BASOPHILS 0.6 % (0.0-2.0); EOSINOPHILS 1.1 % (0.0-3.0); HEMATOCRIT 35.9 % (37.0-47.0); HEMOGLOBIN 12.5 gm/dL (12.0-15.0); MCHC 34.8 g/dL (28.0-37.0); MCV 92.1 fL (80.0-100.0); MONOCYTES 10.7 % (1.0-8.0); PLATELET COUNT 235 thou/uL (150-400); POLYS 58.6 % (36.0-66.0); RDW 14.5 % (10.5-14.5); WBC 5.8 thou/uL (4.0-11.0)
[2020-05-13 00:47] LABS: CALCIUM 8.8 mg/dL (8.5-10.1); CREATININE 0.6 mg/dL (0.6-1.0); POTASSIUM 3.5 mmol/L (3.5-5.1)
[2020-05-13 00:53] LABS: ALBUMIN 3.4 g/dL (3.4-5.0); TOTAL BILIRUBIN 0.8 mg/dL (0.2-1.0); TOTAL PROTEIN 7.9 g/dL (6.4-8.2)
[2020-05-13 02:20] LABS: URINE BILIRUBIN NEGATIVE (Negative); URINE BLOOD 2+ (Negative); URINE CLARITY CLEAR; URINE COLOR YELLOW; URINE GLUCOSE-RANDOM* NEGATIVE (Negative); URINE KETONES 2+ (Negative); URINE LEUKOCYTES-REFLEX NEGATIVE (Negative); URINE NITRITE-REFLEX NEGATIVE (Negative); URINE PROTEIN (DIPSTICK) NEGATIVE (Negative); URINE SPECIFIC GRAVITY >= 1.030 (1.005-1.035); URINE UROBILINOGEN 0.2 E.U./dl (0.2-1.0)
[2020-05-13 02:35] LABS: CRYSTALS None Seen /LPF (None Seen); HYALINE CASTS 0-3 Few /LPF (None Seen); MUCUS 4-6 Moderate strn/LPF (None Seen); SQUAMOUS 4-10 Moderate /LPF (0-3); URINE RBC 3-10 Few /HPF (0-2); URINE WBC-REFLEX None Seen /HPF (0-5)
[2020-05-13] MEDS ORDERED: KEFLEX500 M1 PO (04:00)
[2020-05-13 05:23] VITALS: BP 100/58
--- NOTE | 2020-05-13 08:50 | EKG ---
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: [facility] : 1960 Requested By: Raleigh Islas Order Number: [id number] MD: Ozzie Jacobson Measurements Intervals [place] Rate: 91 P: 55 SD: 159 QRS: 5 QRSD: 99 T: 30 QT: 363 QTc: 447 Interpretive Statements Sinus rhythm Poor R wave progression No previous ECG available for comparison Electronically Signed On 05-13-2020 8:50:38 CDT by Ozzie Jacobson [email or web address] <ELECTRONICALLY SIGNED> By: Ozzie Jacobson MD, [facility] 05/13/20 0850 Ozzie Jacobson MD, [facility] /EPI
== END 2020-05-13 05:11 | disposition home or self-care (01) ==
LOC: ER 22:33
PROVIDERS: Emergency Medicine
DX: N39.0 Urinary tract infection, site not specified (principal); R53.1 Weakness; Z98.890 Other specified postprocedural states; Z91.040 Latex allergy status

== ENCOUNTER 2021-01-20 14:26 | Emergency (ER) | payer OTHER ==
[~2021-01-20] VITALS: Ht 154.9 cm; Wt 81.7 kg
[2021-01-20 16:25] VITALS: BP 134/68
== END 2021-01-20 16:25 | disposition home or self-care (01) ==
LOC: ER 14:26
DX: S93.692A Other sprain of left foot, initial encounter (principal); S93.691A Other sprain of right foot, initial encounter; M25.511 Pain in right shoulder; Z91.040 Latex allergy status; W10.8XXA Fall (on) (from) other stairs and steps, initial encounter; Y93.89 Activity, other specified; Y92.89 Other specified places as the place of occurrence of the external cause; Y99.8 Other external cause status